=== PATIENT | female | born 2000 | race Caucasian/White ===

== ENCOUNTER 2022-03-14 11:23 | Emergency (ER) | payer OTHER ==
[~2022-03-14] VITALS: Ht 154.9 cm; Wt 59.0 kg
[2022-03-14] MEDS ORDERED: Motrin,Rufen800 MG PO (11:45)
[2022-03-14] MEDS ORDERED: AMOXICILLIN875 MG PO (11:45)
== END 2022-03-14 11:50 | disposition home or self-care (01) ==
LOC: ED 11:23
DX: H66.91 Otitis media, unspecified, right ear (principal); F17.200 Nicotine dependence, unspecified, uncomplicated